=== PATIENT | female | born 1955 | race Caucasian/White ===

== ENCOUNTER → 2018-02-17 | Outpatient (CLI) | DX: M16.11 Unilateral primary osteoarthritis, right hip (principal) ==

== ENCOUNTER 2018-03-08 05:06 | Inpatient (IN) | payer OTHER ==
[2018-03-08] VITALS (8 sets, daily range): BP systolic 76–150; BP diastolic 45–75; PULSE 63–89; RESP 17–18; TEMP 98–98.6; O2SAT 98–100
[~2018-03-08] VITALS: Ht 166.4 cm; Wt 56.5 kg
[~2018-03-08 05:06] MED LIST: ACET650T67 PO; CYAN1TAB24 PO
[2018-03-08] MEDS ORDERED: ceFAZolin 2 GM PREMIX 50 ML IV SCH (05:45)
[2018-03-08] MEDS ORDERED: CHLORHEXIDINE GLUCONATE 2 % 1 PACK (2 CLOTHS) TOPICAL PRN (05:45)
[2018-03-08] MEDS ORDERED: POVIDONE IODINE 7.5% SCRUB 118 ML BOTTLE TOPICAL SCH (05:45)
[2018-03-08] MEDS ORDERED: POVIDONE IODINE 5% (ANTISEPSIS KIT) 4 APPLICATIONS EACH NARE PRN (05:45)
[2018-03-08] MEDS ORDERED: LACTATED RINGER'S 1000 ML IV PRN (05:45)
[2018-03-08] MEDS ORDERED: CHLORHEXIDINE GLUCONATE 4% SOLN 120 ML BTL TOPICAL SCH (05:45)
[2018-03-08] MEDS ORDERED: SODIUM CHLORID 0.9% 500 ML IV PRN (05:45)
[2018-03-08] MEDS ORDERED: METOPROLOL TARTRATE 25 MG TAB PO PRN (05:45)
[2018-03-08] MEDS ORDERED: VANCOMYCIN 1 GM/200 ML INJ 200 ML IV SCH (05:45)
[2018-03-08] MEDS ORDERED: GENTAMICIN SULFATE 80 MG/2 ML VIAL ONE (06:16)
[2018-03-08] MEDS ORDERED: ACETAMINOPHEN 1000 MG/100 ML 100 ML IV ONE (06:20)
[2018-03-08] MEDS ORDERED: DEXMEDETOMIDINE HCL 200 MCG/2 ML VIAL ONE (06:20)
[2018-03-08] MEDS ORDERED: BUPIVACAINE PF 0.75% DEX-WATER INJ 2 ML AMP ONE (06:23)
[2018-03-08] MEDS ORDERED: SODIUM CHLORIDE 0.9% INJ 50 ML ONE (06:33)
--- NOTE | 2018-03-08 06:46 | HHI.DCPOC ---
Discharge Care Plan Diagnosis: (1) Osteoarthritis of right hip (2) Status post total hip replacement, right Your Health Problems Are: Difficulty with ADL Goals to Promote Your Health * To prevent worsening of your condition and complications * To maintain your health at the optimal level Directions to Meet Your Goals Take your medications as prescribed Follow your dietary instruction Follow activity as directed Keep your appointments as scheduled Take your immunizations and boosters as scheduled If your symptoms worsen call your PCP, if no PCP go to Urgent Care Center or Emergency Room Smoking is Dangerous to Your Health. Avoid second hand smoke Call the 24-hour hour crisis hotline for domestic abuse at Rik Holland Mar 08, 2018 06:46
--- NOTE | 2018-03-08 06:48 | HHI.FF ---
Face to Face Verification Diagnosis: (1) Osteoarthritis of right hip (2) Status post total hip replacement, right Physical Therapy Gait training, Transfer training, bed to chair Hip: Total hip Right LE Weight Bearing: WB as tolerated Right LE Range of Motion: Active ROM Nursing Nursing: Jaime giron Dressing Changes: Do not change dressing Additional Instructions 1st dressing change in office I have seen patient Kathy Moon on 03/08/18. My clinical findings support the need for the requested home health care services because: Limited ability to care for self High risk of falls I certify that my clinical findings support that this patient is homebound because: Post-op weakness Unsteady gait/balance Rik Holland Mar 08, 2018 06:48
[2018-03-08] MEDS ORDERED: COMMODE 3-IN-11 MIS (06:50)
[2018-03-08] MEDS ORDERED: WALKER WHEELS/F1 MIS (06:50)
[2018-03-08] MEDS ORDERED: SODIUM CHLORIDE 0.9% IV SCH ×2 (07:00→09:15)
[2018-03-08] MEDS ORDERED: TRANEXAMIC ACID IV SCH ×2 (07:00→09:15)
[2018-03-08] MEDS ORDERED: EXPAREL PERI-ARTICULAR INJECTION (TOTAL VOL. 60 ML) P-ARTICULR SCH ×2 (07:00)
--- NOTE | 2018-03-08 08:59 | RADRPT ---
EXAM DATE: 03/08/2018 8:44 AM EDT AGE/SEX: 62 years / Female INDICATIONS: Right hip pain, anterior hip replacement done in operating room. CLINICAL DATA: This is the patient's initial encounter. Patient reports that signs and symptoms have been present for 1 day and indicates a pain score of Nonresponsive. MEDICAL/SURGICAL HISTORY: Non-responsive. Non-responsive. COMPARISON: No prior [facility] exams available for comparison. FINDINGS: 3 AP views of the right hip obtained in the operating room document hardware related to total hip art hroplasty. Femoral component and acetabular components are noncemented. Soft tissue air is present, a s expected. No concerning abnormality is identified. CONCLUSION: Images document right total hip arthroplasty hardware. Electronically signed by: Myron Chávez MD 03/08/2018 8:58 AM EDT
[2018-03-08] MEDS ORDERED: ZOLPIDEM TARTRATE 5 MG TAB PO PRN (09:15)
[2018-03-08] MEDS ORDERED: MAGNESIUM HYDROXIDE SUSP 30 ML CUP PO PRN (09:15)
[2018-03-08] MEDS ORDERED: MORPHINE SULFATE 4 MG/ML INJ IV PUSH PRN (09:15)
[2018-03-08] MEDS ORDERED: DO NOT ADM ANY ANTICOAGULANT DRUGS PRN (09:15)
[2018-03-08] MEDS ORDERED: ALUMINUM/MAGNESIUM/SIMETH 30 ML CUP PO PRN (09:15)
[2018-03-08] MEDS ORDERED: diphenhydrAMINE HCL 50 MG/ML VIAL IV PUSH PRN (09:15)
[2018-03-08] MEDS ORDERED: NALOXONE HCL 0.4 MG/ML AMP IV PUSH PRN (09:15)
[2018-03-08] MEDS ORDERED: traMADol HCL 50 MG TAB PO PRN (09:15)
[2018-03-08] MEDS ORDERED: BISACODYL 10 MG SUPP RECTAL PRN (09:15)
[2018-03-08] MEDS ORDERED: MIDAZOLAM HCL 2 MG/2 ML VIAL ONE (09:22)
[2018-03-08] MEDS ORDERED: *morphine SULFATE 8 MG/ML PERIprocedure ONLY ONE (09:23)
--- NOTE | 2018-03-08 09:25 | PD.OP ---
cc: Josué Good MD Operative Report Date of Surgery: Mar 08, 2018 Preoperative Diagnosis: Right hip severe osteoarthritis Postoperative Diagnosis: Same Procedure: Right total hip arthroplasty Anesthesia: Spinal Surgeon: Josué Good Specialties Operator(s): AARON Vergara The surgical procedure was assisted by my Advanced Registered Nurse Practitioner. My EMBROIDERY DESIGNER presence was necessary throughout this case for the manipulation and positioning of the surgical extremity. My EMBROIDERY DESIGNER was assisting me throughout the duration of this procedure. The skill set of an Advance Registered Nurse Practitioner was medically necessary to complete this procedure. During the surgical case, the assistant professor surgical technology was working at the back table and the Advance Registered Nurse Practitioner was directly assisting me. Operation and Findings: IMPLANT DESCRIPTION: 1. Somers Gription Cup, acetabular size 52. 2. Somers AltrX polyethylene, neutral. 4. Corail femoral stem size 11, no collar, standard offset. 5. Femoral head/neck ceramic, 36, +1.5. ESTIMATED BLOOD LOSS: 150 cc. JUSTIFICATION FOR PROCEDURE: The patient has end-stage osteoarthritis to the hip. There is an attached conservative measures pathway form in the chart that describes the nonoperative measures that were undertaken prior to consideration of surgical management. The patient understood the risks and benefits of surgical management. See my office notes for further details. PROCEDURE: The patient was brought back to the operative theatre. Adequate anesthesia was obtained. The patient received intravenous vancomycin and Ancef. The patient was carefully placed on the operative table. The lower extremity was prepped and draped in the usual sterile fashion. Fluoroscopic images were obtained. We made a standard anterior incision over the hip. We dissected through the TFL fascia, exposing the anterior capsule. Arthrotomy was performed in a T-shaped fashion. The capsule was tagged with a #2 FiberWire. End-stage arthritis was identified. Osteotomy was performed through the femoral neck exposing the acetabulum. Remnants of the labrum were resected and osteophytes were removed. We sequentially reamed the acetabulum. We trialed the hip and placed the final cup into position. This was done under fluoroscopic guidance to obtain the appropriate inclination and anteversion. A manhole cover was placed into the acetabular component. We then placed the final polyethylene into position and confirmed that it was well seated. Capsular attachments on the calcar and the inner aspect of the greater trochanter were resected. On the proximal aspect of the femur we used a rongeur , box osteotome, canal finder, sequential broaches and lateralizing rasp. We calcar planed the proximal femur. Then thoroughly irrigated the wound. We trialed the hip with the appropriate size stem. We placed the final stem in to position and trialed again. The hip was stable while it was externally rotated 70 degrees when the leg was lowered to the floor. The final head was applied, and final fluoroscopic images were obtained. The wound was thoroughly irrigated again. Interarticular injection of liposomal bupivacaine was given. The capsule was closed with #2 FiberWire and #1 Vicryl. The deep fascia was closed with a #2 Stratafix, followed by 2-0 Vicryl in the skin and Dermabond dressing. Postop plan is to weight-bear as tolerated. DVT prophylaxis will be performed with Shaw, EDISON newton, early mobilization, and Lovenox followed by aspirin. Josué Good MD Mar 08, 2018 09:25
[2018-03-08] MEDS: SODIUM CHLOR 0.9% 1000 ML INJ 1,000 ML IV SCH ×2 (09:30→12:00)
--- NOTE | 2018-03-08 11:19 | RADRPT ---
EXAM DATE: 03/08/2018 10:49 AM EDT AGE/SEX: 62 years / Female INDICATIONS: Post op right hip surgery. CLINICAL DATA: This is the patient's initial encounter. Patient reports that signs and symptoms have been present for 1 day and indicates a pain score of 0/10. MEDICAL/SURGICAL HISTORY: None. None. COMPARISON: No prior [facility] exams available for comparison. FINDINGS: A total hip prosthesis is seen. This is in good position. No fracture or dislocation is observed. Sof t tissues are unremarkable. Moderate osteoarthritis involving the left hip. CONCLUSION: Right hip prosthesis in good position. No fracture. Electronically signed by: Aldair Denton MD 03/08/2018 11:18 AM EDT
[2018-03-08] MEDS ORDERED: Post-op Orders (for Pharmacy) XX ONE (11:35)
[2018-03-08] MEDS ORDERED: ONDANSETRON ODT 4 MG TAB PO PRN (11:45)
--- NOTE | 2018-03-08 17:18 | PD.CONS ---
HPI Service [facility] Hospitalists Consult Requested By Dr. Good Reason for Consult Postoperative medical management Primary Care Physician Ashley Barker MD Diagnoses: (1) Osteoarthritis of right hip History of Present Illness This 62-year-old female patient with past medical history which includes osteoarthritis. Patient underwent a right total hip arthroplasty today [address] Lizama. We have been consulted for assistance with postoperative medical management. Patient reports pain is tolerable denies nausea or vomiting. RN reports that patient had hypotension 76/46 after ambulating with physical therapy. Patient does endorse feeling lightheaded during hypotensive episode. Blood pressure improved once patient was returned to bed. Patient denies feeling dizzy or lightheaded at this time. Patient reports she, "does not tolerate medications well." Patient denies fevers chills nausea vomiting diarrhea constipation shortness of breath or chest pain. Review of Systems Constitutional: COMPLAINS OF: Dizziness (Has improved) Past Family Social History Past Medical History Osteoarthritis Past Surgical History Hysterectomy, tonsillectomy Reported Medications Tylenol Arthritis (Acetaminophen) 650 Mg Tablet.er 1 Tab PO BID B12 (Cyanocobalamin) 1,000 Mcg Tab 2,500 Mcg PO DAILY Allergies: Coded Allergies: azithromycin (Verified Allergy, Intermediate, NAUSEATED, 03/08/18) codeine (Verified Allergy, Intermediate, RASH, 03/08/18) erythromycin base (Verified Allergy, Intermediate, NAUSEATED, 03/08/18) Sulfa (Sulfonamide Antibiotics) (Verified Adverse Reaction, Intermediate, NAUSEATED, 03/08/18) Family History Family medical history includes heart disease Social History 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 EtOH use approximately 1 drink per day Lifelong non-smoker Denies illicit drug use Physical Exam Vital Signs Vital Signs Date Time Temp Pulse Resp B/P (MAP) Pulse Ox O2 Delivery O2 Flow Rate FiO2 03/08/18 16:37 99 21 03/08/18 15:07 63 17 124/67 (86) 100 03/08/18 15:03 100/45 (63) 03/08/18 15:00 76/46 (56) 03/08/18 12:16 98.0 71 18 150/75 (100) 98 03/08/18 11:25 98.1 80 15 120/58 (78) 98 Nasal Cannula 2 03/08/18 10:45 79 15 113/57 (75) 98 Nasal Cannula 2 03/08/18 10:15 73 16 136/71 (92) 98 Nasal Cannula 2 03/08/18 10:00 73 16 123/67 (85) 100 Nasal Cannula 2 03/08/18 09:45 73 15 136/71 (92) 100 Nasal Cannula 2 03/08/18 09:30 86 17 128/69 (88) 100 Nasal Cannula 2 03/08/18 09:17 97.9 86 15 121/57 (78) 100 Nasal Cannula 2 03/08/18 05:36 97.5 87 16 157/94 (115) 100 Physical Exam GENERAL: This is a well-nourished, well-developed patient, in no apparent distress. SKIN: Postoperative dressing dry and intact HEAD: Atraumatic. Normocephalic. No temporal or scalp tenderness. EYES: Extraocular motions intact. No scleral icterus. No injection or drainage. CARDIOVASCULAR: Regular rate and rhythm RESPIRATORY: Clear to auscultation. Breath sounds equal bilaterally. GASTROINTESTINAL: Abdomen soft, non-tender, nondistended. Normoactive bowel sounds MUSCULOSKELETAL: Extremities without clubbing, cyanosis, or edema. No joint tenderness, effusion, or edema noted. No calf tenderness. Negative Homans sign bilaterally. NEUROLOGICAL: Awake and alert. No focal deficits noted. Five out of 5 muscle strength in all muscle groups, with the exception of right lower extremity. Normal speech. Imaging Last Impressions Hip and Pelvis X-Ray 03/08/18 0903 Signed Impressions: CONCLUSION: Right hip prosthesis in good position. No fracture. Hip X-Ray 03/08/18 0000 Signed Impressions: CONCLUSION: Images document right total hip arthroplasty hardware. Assessment and Plan Problem List: (1) Osteoarthritis of right hip ICD Codes: M16.11 - Unilateral primary osteoarthritis, right hip Plan: This 62-year-old female patient with past medical history which includes osteoarthritis. - s/p right total hip arthroplasty today 03/08/[address] Lizama -Tramadol as needed for pain - Lovenox for DVT prophylaxis (2) Hypotension ICD Codes: I95.9 - Hypotension, unspecified Plan: This 62-year-old female patient with past medical history which includes osteoarthritis. Patient underwent a right total hip arthroplasty today [address] Lizama. We have been consulted for assistance with postoperative medical management. Patient reports pain is tolerable denies nausea or vomiting. RN reports that patient had hypotension 76/46 after ambulating with physical therapy. Patient does endorse feeling lightheaded during hypotensive episode. Blood pressure improved once patient was returned to bed. Patient denies feeling dizzy or lightheaded at this time. Patient reports she, "does not tolerate medications well." Patient denies fevers chills nausea vomiting diarrhea constipation shortness of breath or chest pain. - Hypotension likely related to anesthesia - Stat CBC requested - Continue normal saline at 100 cc/h overnight - Continue to monitor blood pressure trend - CBC in a.m. -Plan discussed with patient and family members at bedside Assessment and Plan Patient examined. Assessment and plan formulated with Trish Kennedy PA-C. I agree with the above. Problem Qualifiers (1) Osteoarthritis of right hip: Qualified Codes: M16.11 - Unilateral primary osteoarthritis, right hip Trish Kennedy Mar 08, 2018 17:18 Saeed Ritchie DO Mar 09, 2018 15:23
[2018-03-08 17:40] LABS: AUTOMATED NEUTROPHIL # 10.2 TH/MM3 (1.8-7.7); BASOPHIL % 0.1 % (0.0-2.0); HEMATOCRIT 32.4 % (35.0-46.0); HEMOGLOBIN 10.9 GM/DL (11.6-15.3); LYMPH % 3.6 % (9.0-44.0); LYMPHOCYTE # 0.4 TH/MM3 (1.0-4.8); MEAN CORPUSCULAR HEMOGLOBIN 30.7 PG (27.0-34.0); MEAN CORPUSCULAR HGB CONC 33.7 % (32.0-36.0); MEAN PLATELET VOLUME 8.1 FL (7.0-11.0); MONO % 4.4 % (0.0-8.0); MONOCYTE # 0.5 TH/MM3 (0-0.9); NEUT % 91.9 % (16.0-70.0); PLATELET COUNT 171 TH/MM3 (150-450); RED BLOOD COUNT 3.56 MIL/MM3 (4.00-5.30); RED CELL DISTRIBUTION WIDTH 12.9 % (11.6-17.2); WHITE BLOOD COUNT 11.1 TH/MM3 (4.0-11.0)
[2018-03-09] VITALS (7 sets, daily range): BP systolic 109–139; BP diastolic 58–79; PULSE 78–89; RESP 14–18; TEMP 98.1–100.1; O2SAT 96–100
[2018-03-09 05:56] LABS: HEMATOCRIT 31.3 % (35.0-46.0); HEMOGLOBIN 10.7 GM/DL (11.6-15.3); MEAN CELL VOLUME 90.5 FL (80.0-100.0); MEAN CORPUSCULAR HEMOGLOBIN 30.8 PG (27.0-34.0); MEAN CORPUSCULAR HGB CONC 34.1 % (32.0-36.0); MEAN PLATELET VOLUME 9.1 FL (7.0-11.0); PLATELET COUNT 166 TH/MM3 (150-450); RED BLOOD COUNT 3.46 MIL/MM3 (4.00-5.30); RED CELL DISTRIBUTION WIDTH 12.8 % (11.6-17.2); WHITE BLOOD COUNT 7.6 TH/MM3 (4.0-11.0)
[2018-03-09] MEDS: SODIUM CHLOR 0.9% 1000 ML INJ 1,000 ML IV SCH ×2 (08:00→17:19)
[2018-03-09] MEDS: ENOXAPARIN SODIUM 40 MG/0.4 ML SYRINGE SQ SCH (09:15)
[2018-03-09] MEDS: traMADol HCL 50 MG TAB PO PRN ×3 (09:16→22:00)
--- NOTE | 2018-03-09 14:15 | HHI.PR ---
Subjective Remarks Patient evaluated during joint class patient endorses continued lightheadedness with standing Objective Vitals Vital Signs Date Time Temp Pulse Resp B/P (MAP) Pulse Ox O2 Delivery O2 Flow Rate FiO2 03/09/18 12:29 98.1 85 16 133/70 (91) 100 03/09/18 09:15 99.4 89 15 135/65 (88) 98 03/09/18 03:34 99.7 78 17 122/58 (79) 98 03/08/18 23:25 98.6 82 18 101/55 (70) 98 03/08/18 20:16 98.4 77 18 121/67 (85) 98 03/08/18 17:00 98.0 89 18 140/73 (95) 100 03/08/18 16:37 99 21 03/08/18 15:07 63 17 124/67 (86) 100 03/08/18 15:03 100/45 (63) 03/08/18 15:00 76/46 (56) Result Diagram: 03/09/18 0428 Imaging Last Impressions Hip and Pelvis X-Ray 03/08/18 0903 Signed Impressions: CONCLUSION: Right hip prosthesis in good position. No fracture. Hip X-Ray 03/08/18 0000 Signed Impressions: CONCLUSION: Images document right total hip arthroplasty hardware. Objective Remarks GENERAL: This is a well-nourished, well-developed patient, in no apparent distress. CARDIOVASCULAR: Regular rate and rhythm RESPIRATORY: Clear to auscultation. Breath sounds equal bilaterally. GASTROINTESTINAL: Abdomen soft, non-tender, nondistended. Normal active bowel sounds MUSCULOSKELETAL: Extremities without clubbing, cyanosis, or edema. NEURO: Alert & Oriented x4 to person, place, time, situation. Moves all ext x4 A/P Problem List: (1) Osteoarthritis of right hip ICD Codes: M16.11 - Unilateral primary osteoarthritis, right hip Plan: This 62-year-old female patient with past medical history which includes osteoarthritis. - s/p right total hip arthroplasty today 03/08/[address] Lizama -Tramadol as needed for pain - Lovenox for DVT prophylaxis (2) Hypotension ICD Codes: I95.9 - Hypotension, unspecified Plan: This 62-year-old female patient with past medical history which includes osteoarthritis. Patient underwent a right total hip arthroplasty today [address] Lizama. We have been consulted for assistance with postoperative medical management. Patient reports pain is tolerable denies nausea or vomiting. RN reports that patient had hypotension 76/46 after ambulating with physical therapy. Patient does endorse feeling lightheaded during hypotensive episode. Blood pressure improved once patient was returned to bed. Patient denies feeling dizzy or lightheaded at this time. Patient reports she, "does not tolerate medications well." Patient denies fevers chills nausea vomiting diarrhea constipation shortness of breath or chest pain. - Hypotension improving likely related to anesthesia - CBC reviewed hemoglobin stable - DC IV fluids tolerating PO - Continue to monitor blood pressure trend - recommend one more day of monitoring patient as she continues to have dizziness with standing, which seems to be improving -Plan discussed with patient and family members at bedside Assessment and Plan Patient examined. Assessment and plan formulated with Trish Kennedy PA-C. I agree with the above. - observe overnight - anticipate d/c to home with C and home PT 03/10/18 Problem Qualifiers (1) Osteoarthritis of right hip: Qualified Codes: M16.11 - Unilateral primary osteoarthritis, right hip Trish Kennedy Mar 09, 2018 14:15 Saeed Ritchie DO Mar 09, 2018 15:23
--- NOTE | 2018-03-09 18:35 | PD.ORT.PN ---
Subjective Post Op Day #: 1 Subjective Remarks The patient is OOB in chair with mild pain to the right hip. Patient states she has had some generalized weakness and shakiness. Patient requesting to stay an additional night in the hospital. Medical wants to keep her overnight to monitor. Objective Vitals Vital Signs Date Time Temp Pulse Resp B/P (MAP) Pulse Ox O2 Delivery O2 Flow Rate FiO2 03/09/18 17:11 100.1 80 14 139/79 (99) 100 03/09/18 14:14 98.4 88 15 109/65 (80) 99 03/09/18 12:29 98.1 85 16 133/70 (91) 100 03/09/18 09:15 99.4 89 15 135/65 (88) 98 03/09/18 03:34 99.7 78 17 122/58 (79) 98 03/08/18 23:25 98.6 82 18 101/55 (70) 98 03/08/18 20:16 98.4 77 18 121/67 (85) 98 I/O 03/08/18 03/08/18 03/08/18 03/09/18 03/09/18 03/09/18 07:00 15:00 23:00 07:00 15:00 23:00 Intake Total 2280 ml 820 ml 480 ml Output Total 150 ml 750 ml Balance 2130 ml 70 ml 480 ml Intake Oral 720 ml 480 ml IV Total 2280 ml 100 ml Output Urine Total 0 ml 750 ml Estimated Blood Loss 150 ml Bladder Scan Volume Amount 571 ml # Voids 6 # Bowel Movements 0 Result Diagram: 03/09/18 0428 Procedures Right SHANNA Objective Remarks Dressing is C/D/I. EHL/TA/G intact. 2+ pedal pulse. Calf is soft and nontender. + SILT distally. Assessment & Plan Ortho Post Op Day #: 1 Problem List: Assessment and Plan POD #1: Right SHANNA 1. WBAT RLE 2. Lovenox followed by ASA for DVT prophylaxis 3. Ice to the right hip PRN 4. Anticipatory discharge Tuesday morning if medically cleared and feeling better. 5. F/U in the office with Dr. Good or AARON Singh as previously scheduled. Rik Holland Mar 09, 2018 18:35
[2018-03-09] MEDS: DOCUSATE SODIUM 100 MG CAP PO SCH (21:00)
[2018-03-09] MEDS: MULTIVITAMINS/MINERALS THERAPEUTIC TAB PO SCH (22:00)
[2018-03-10] MEDS: SODIUM CHLOR 0.9% 1000 ML INJ 1,000 ML IV SCH (02:56)
[2018-03-10 08:00] VITALS: BP 102/70; PULSE 88; RESP 16; TEMP 98; O2SAT 97
[2018-03-10 08:01] LABS: HEMATOCRIT 29.8 % (35.0-46.0); HEMOGLOBIN 10.2 GM/DL (11.6-15.3); MEAN CELL VOLUME 90.7 FL (80.0-100.0); MEAN CORPUSCULAR HGB CONC 34.2 % (32.0-36.0); MEAN PLATELET VOLUME 9.1 FL (7.0-11.0); PLATELET COUNT 146 TH/MM3 (150-450); RED BLOOD COUNT 3.28 MIL/MM3 (4.00-5.30); RED CELL DISTRIBUTION WIDTH 12.9 % (11.6-17.2); WHITE BLOOD COUNT 6.6 TH/MM3 (4.0-11.0)
[2018-03-10] MEDS: MULTIVITAMINS/MINERALS THERAPEUTIC TAB PO SCH (09:19)
[2018-03-10] MEDS: ENOXAPARIN SODIUM 40 MG/0.4 ML SYRINGE SQ SCH (09:19)
[2018-03-10] MEDS: DOCUSATE SODIUM 100 MG CAP PO SCH (09:19)
[2018-03-10] MEDS: traMADol HCL 50 MG TAB PO PRN (10:16)
--- NOTE | 2018-03-10 11:01 | HHI.PR ---
Subjective Remarks No new complaints. Pt is eager for discharge to home today. Pt has been ambulating in the hallways with physical therapy. Objective Vitals Vital Signs Date Time Temp Pulse Resp B/P (MAP) Pulse Ox O2 Delivery O2 Flow Rate FiO2 03/10/18 08:30 Room Air 03/10/18 08:00 98.0 88 16 102/70 (81) 97 03/09/18 23:29 Room Air 03/09/18 23:28 98.8 84 18 118/65 (82) 96 03/09/18 23:22 17 03/09/18 19:26 98.8 83 18 129/66 (87) 98 03/09/18 17:11 100.1 80 14 139/79 (99) 100 03/09/18 14:14 98.4 88 15 109/65 (80) 99 03/09/18 12:29 98.1 85 16 133/70 (91) 100 Result Diagram: 03/10/18 0625 Imaging Last Impressions Hip and Pelvis X-Ray 03/08/18 0903 Signed Impressions: CONCLUSION: Right hip prosthesis in good position. No fracture. Hip X-Ray 03/08/18 0000 Signed Impressions: CONCLUSION: Images document right total hip arthroplasty hardware. Objective Remarks GENERAL: This is a well-nourished, well-developed patient, in no apparent distress. CARDIOVASCULAR: Regular rate and rhythm RESPIRATORY: Clear to auscultation. Breath sounds equal bilaterally. GASTROINTESTINAL: Abdomen soft, non-tender, nondistended. Normal active bowel sounds MUSCULOSKELETAL: Extremities without clubbing, cyanosis, or edema. NEURO: Alert & Oriented x4 to person, place, time, situation. Moves all ext x4 A/P Problem List: (1) Osteoarthritis of right hip ICD Codes: M16.11 - Unilateral primary osteoarthritis, right hip Plan: This 62-year-old female patient with past medical history which includes osteoarthritis. - s/p right total hip arthroplasty today 03/08/[address] Lizama -Tramadol as needed for pain - Lovenox for DVT prophylaxis - per Orthopedist. Pt will change to ASA following lovenox - Agree with discharge to home today. - f/u with Dr. Good in 1 week. (2) Hypotension ICD Codes: I95.9 - Hypotension, unspecified Plan: This 62-year-old female patient with past medical history which includes osteoarthritis. Patient underwent a right total hip arthroplasty today [address] Lizama. We have been consulted for assistance with postoperative medical management. Patient reports pain is tolerable denies nausea or vomiting. RN reports that patient had hypotension 76/46 after ambulating with physical therapy. Patient does endorse feeling lightheaded during hypotensive episode. Blood pressure improved once patient was returned to bed. Patient denies feeling dizzy or lightheaded at this time. Patient reports she, "does not tolerate medications well." Patient denies fevers chills nausea vomiting diarrhea constipation shortness of breath or chest pain. - Hypotension improving likely related to anesthesia - hypotension improved - pt ambulating in the hallways with PT without dizziness. Problem Qualifiers (1) Osteoarthritis of right hip: Qualified Codes: M16.11 - Unilateral primary osteoarthritis, right hip Saeed Ritchie DO Mar 10, 2018 11:01
--- NOTE | 2018-03-10 11:02 | HHI.PR ---
Subjective Remarks Patient reports feeling much better today. No longer having dizziness or feeling lightheaded with standing asking to go home Objective Vitals Vital Signs Date Time Temp Pulse Resp B/P (MAP) Pulse Ox O2 Delivery O2 Flow Rate FiO2 03/10/18 08:30 Room Air 03/10/18 08:00 98.0 88 16 102/70 (81) 97 03/09/18 23:29 Room Air 03/09/18 23:28 98.8 84 18 118/65 (82) 96 03/09/18 23:22 17 03/09/18 19:26 98.8 83 18 129/66 (87) 98 03/09/18 17:11 100.1 80 14 139/79 (99) 100 03/09/18 14:14 98.4 88 15 109/65 (80) 99 03/09/18 12:29 98.1 85 16 133/70 (91) 100 Result Diagram: 03/10/18 0625 Other Results Laboratory Tests Test 03/08/18 17:30 03/09/18 04:28 03/10/18 06:25 White Blood Count 11.1 TH/MM3 7.6 TH/MM3 6.6 TH/MM3 Red Blood Count 3.56 MIL/MM3 3.46 MIL/MM3 3.28 MIL/MM3 Hemoglobin 10.9 GM/DL 10.7 GM/DL 10.2 GM/DL Hematocrit 32.4 % 31.3 % 29.8 % Mean Corpuscular Volume 91.0 FL 90.5 FL 90.7 FL Mean Corpuscular Hemoglobin 30.7 PG 30.8 PG 31.0 PG Mean Corpuscular Hemoglobin Concent 33.7 % 34.1 % 34.2 % Red Cell Distribution Width 12.9 % 12.8 % 12.9 % Platelet Count 171 TH/MM3 166 TH/MM3 146 TH/MM3 Mean Platelet Volume 8.1 FL 9.1 FL 9.1 FL Neutrophils (%) (Auto) 91.9 % Lymphocytes (%) (Auto) 3.6 % Monocytes (%) (Auto) 4.4 % Eosinophils (%) (Auto) 0.0 % Basophils (%) (Auto) 0.1 % Neutrophils # (Auto) 10.2 TH/MM3 Lymphocytes # (Auto) 0.4 TH/MM3 Monocytes # (Auto) 0.5 TH/MM3 Eosinophils # (Auto) 0.0 TH/MM3 Basophils # (Auto) 0.0 TH/MM3 CBC Comment DIFF FINAL Differential Comment Imaging Last Impressions Hip and Pelvis X-Ray 03/08/18 0903 Signed Impressions: CONCLUSION: Right hip prosthesis in good position. No fracture. Hip X-Ray 03/08/18 0000 Signed Impressions: CONCLUSION: Images document right total hip arthroplasty hardware. Objective Remarks GENERAL: This is a well-nourished, well-developed patient, in no apparent distress. CARDIOVASCULAR: Regular rate and rhythm RESPIRATORY: Clear to auscultation. Breath sounds equal bilaterally. GASTROINTESTINAL: Abdomen soft, non-tender, nondistended. Normal active bowel sounds MUSCULOSKELETAL: Extremities without clubbing, cyanosis, or edema. NEURO: Alert & Oriented x4 to person, place, time, situation. Moves all ext x4 A/P Problem List: (1) Osteoarthritis of right hip ICD Codes: M16.11 - Unilateral primary osteoarthritis, right hip Plan: This 62-year-old female patient with past medical history which includes osteoarthritis. - s/p right total hip arthroplasty today 03/08/[address] Lizama -Tramadol as needed for pain - Lovenox for DVT prophylaxis -Anticoagulation for discharge per orthopedic surgery. Patient has prescription for Lovenox 10 days followed by aspirin. (2) Hypotension ICD Codes: I95.9 - Hypotension, unspecified Plan: This 62-year-old female patient with past medical history which includes osteoarthritis. Patient underwent a right total hip arthroplasty today [address] Lizama. We have been consulted for assistance with postoperative medical management. Patient reports pain is tolerable denies nausea or vomiting. RN reports that patient had hypotension 76/46 after ambulating with physical therapy. Patient does endorse feeling lightheaded during hypotensive episode. Blood pressure improved once patient was returned to bed. Patient denies feeling dizzy or lightheaded at this time. Patient reports she, "does not tolerate medications well." Patient denies fevers chills nausea vomiting diarrhea constipation shortness of breath or chest pain. - Hypotension improving likely related to anesthesia - CBC reviewed hemoglobin stable - symptomatic hypotension resolved. - cleared for DC home from medical standpoint Assessment and Plan Patient examined. Assessment and plan formulated with Trish Kennedy PA-C. I agree with the above. Problem Qualifiers (1) Osteoarthritis of right hip: Qualified Codes: M16.11 - Unilateral primary osteoarthritis, right hip Trish Kennedy Mar 10, 2018 11:02 Saeed Ritchie DO Mar 12, 2018 23:06
[2018-03-10 12:00] VITALS: BP 128/63; PULSE 85; RESP 16; TEMP 97.9; O2SAT 99
--- NOTE | 2018-03-10 14:56 | HHI.DS ---
Discharge Summary Admission Date Mar 08, 2018 at 05:06 Discharge Date: Mar 10, 2018 Admitting Diagnosis OA of the right hip Status post total hip replacement, right Diagnosis: (1) Osteoarthritis of right hip Diagnosis: Principal ICD Codes: M16.11 - Unilateral primary osteoarthritis, right hip (2) Status post total hip replacement, right Diagnosis: Principal ICD Codes: Z96.641 - Presence of right artificial hip joint Procedures Right SHANNA Brief History This is a 62 year old female patient with severe OA of the right hip CBC/BMP: 03/10/18 0625 Significant Findings Laboratory Tests Test 03/08/18 17:30 03/09/18 04:28 03/10/18 06:25 White Blood Count 11.1 TH/MM3 (4.0-11.0) Red Blood Count 3.56 MIL/MM3 (4.00-5.30) 3.46 MIL/MM3 (4.00-5.30) 3.28 MIL/MM3 (4.00-5.30) Hemoglobin 10.9 GM/DL (11.6-15.3) 10.7 GM/DL (11.6-15.3) 10.2 GM/DL (11.6-15.3) Hematocrit 32.4 % (35.0-46.0) 31.3 % (35.0-46.0) 29.8 % (35.0-46.0) Neutrophils (%) (Auto) 91.9 % (16.0-70.0) Lymphocytes (%) (Auto) 3.6 % (9.0-44.0) Neutrophils # (Auto) 10.2 TH/MM3 (1.8-7.7) Lymphocytes # (Auto) 0.4 TH/MM3 (1.0-4.8) Platelet Count 146 TH/MM3 (150-450) PE at Discharge Dressing is C/D/I. EHL/TA/G intact. 2+ pedal pulse. Calf is soft and nontender. + SILT distally. Hospital Course The patient was admitted to the hospital for severe OA of the right hip to have a right SHANNA. The patient's surgery went well without complication. The patient is WBAT on the right lower extremity. The patient is on a regular diet. The patient was placed on Lovenox followed by ASA for DVT prophylaxis. The patient was discharged home with home health and will f/u in the office as previously scheduled with Dr. Good or AARON Singh. Pt Condition on Discharge: Stable Discharge Disposition: Disch w/ Home Health Serv Discharge Instructions Diet Instructions: As Tolerated, No Restrictions Activities You Can Perform: Weight Bearing as Dion Activities to Avoid: Strenuous Activity Follow up Referrals: Orthopedics with Josué Good MD New Medications: Commode 3-in-1 (Commode 3-in-1) 1 Mis Mis EA .XX DIRECTED, #1 0 Refills Walker with Front Wheels (Walker with Front Wheels) 1 Mis Mis EA .XX DIRECTED, #1 0 Refills Continued Medications: Cyanocobalamin (B12) 1,000 Mcg Tab 2500 MCG PO DAILY Discontinued Medications: Acetaminophen (Tylenol Arthritis) 650 Mg Tablet.er 1 TAB PO BID for Pain Management Rik Holland Mar 10, 2018 14:56
== END 2018-03-10 12:41 | disposition home health service (06) | DRG 470 ==
LOC: HSDI 05:06 → N06B 11:37
PROVIDERS: ADMIT Orthopaedic Surgery; ATTEND Orthopaedic Surgery
PROC: 0SR904A Replacement of Right Hip Joint with Ceramic on Polyethylene Synthetic Substitute, Uncemented, Open Approach (ICD-10-PCS; principal; 2018-03-08 06:48)
DX: M16.11 Unilateral primary osteoarthritis, right hip (principal); R53.1 Weakness; I95.81 Postprocedural hypotension; T41.205A Adverse effect of unspecified general anesthetics, initial encounter
CPT/HCPCS: 73502; 76000; 82948; 85025; 85027; 86850; 86900; 86901; 94150; C1776; C9290; J0131; J0690; J1580; J1650; J2250; J2270; J3010; J3370; J7030; J7120